=== PATIENT | male | born 1995 | race Caucasian/White ===

== ENCOUNTER 2023-03-11 15:52 | Emergency (ER) | payer BC, SELFPAY ==
[2023-03-11 16:03] VITALS: BP 126/74; PULSE 82; RESP 20; TEMP 36.9; O2SAT 98
--- NOTE | 2023-03-11 16:45 | ED.URI ---
HPI - URI/Sore Throat General Chief Complaint: Upper Respiratory Infection Stated Complaint: cough / tight chest Time Seen by Provider: 03/11/23 16:45 Source: patient, RN notes reviewed and old records reviewed Mode of arrival: ambulatory Limitations: no limitations History of Present Illness HPI Narrative: 27 year old male presents to express care with complaints of developing nasal congestion with drainage and cough since yesterday. patient reports that he noted today some tightness in chest intermittent with cough, denies any shortness of breath or any fevers. He states that he works in a dirty environment which has aggravated his cough. Patient has taken some DayQuil and Tyleol for his symptoms. denies any known ill contacts. MD elicited complaint: cough, rhinorrhea, nasal congestion and other (tightness to chest with cough) Onset (ago): day(s) (since yesterday) Consistency: intermittent Pain scale (0-10): 3 Able to tolerate fluids by mouth: Yes Treatments prior to arrival: acetaminophen and other (DayQuil) Related Data Allergies Allergy/AdvReac Type Severity Reaction Status Date / Time azithromycin Allergy Rash Verified 03/11/23 16:09 etomidate AdvReac Other Verified 03/11/23 16:09 Review of Systems Review of Systems: CONSTITUTIONAL: Denies malaise, chills, sweats, or fever. EYES: Denies visual changes, redness, or discharge. ENT: Reports rhinorrhea, congestion, no sinus pain, no otalgia scratchy sore throat. CARDIOVASCULAR: Denies chest pain, palpitations, or edema. RESPIRATORY: Reports cough.? Denies dyspnea,.reports medial chest tightness with cough GASTROINTESTINAL: Denies abdominal pain, nausea, vomiting, diarrhea SKIN: Denies rash or itching. MUSCULOSKELETAL: Denies myalgia. NEUROLOGIC: Denies headache. All systems reviewed & are unremarkable except as noted in HPI and below PMFSH Surgical History Surgical History (Updated 03/13/23 @ 22:12 by Krystina Peace NP) Hx of thumb surgery left thumb tendon reattached Social History Social History (Updated 03/13/23 @ 22:12 by Krystina Peace NP) Smoking status: Never smoker Alcohol intake: current Alcohol use details: rare social Substance use type: does not use Living arrangements: with family Gender identity (if verbalized by the patient): Male Comments At time of signature, agree with nursing past medical, surgical, social and family history. There is no relevant family history pertinent to the presenting complaint Exam Narrative: GENERAL: Well-appearing, well-nourished, and in no acute distress. HEAD: Normocephalic EYES: PERRLA, conjunctivae clear ENT: Nares clear, turbinates edematous and erythematous, clear discharge. Mucous membranes moist. TM pearly [place] with dull light reflex bilaterally; no tragal tenderness. Oropharynx erythematous without lesions. Tonsils red not enlarged and without exudate, no drooling, no hoarseness, no trismus, uvula midline.post nasal drainage. NECK: Supple. No lymphadenopathy CHEST: Clear to auscultation, breath sounds equal. No wheezing, rhonchi, rales, or stridor. No respiratory distress, speaks in full sentences.dry cough noted SAO2 98% on room air HEART: Regular rate and rhythm. No murmur heard. SKIN: Warm, dry, no rash. NEURO: Alert and oriented x3. PSYCH: Normal mood and affect Course Course Emergency Course: Patient is aware of diagnosis, understands and agrees to treatment plan.? Anticipatory guidance given.? Patient agrees to follow-up as directed and is aware of reasons to seek care at the emergency department. Portions of this record may have been created with voice recognition software Level of Care: Express Care Visit Vital Signs Vital signs: Vital Signs Temperature 36.9 C 03/11/23 16:03 Pulse Rate 82 03/11/23 16:03 Respiratory Rate 20 03/11/23 16:03 Blood Pressure 126/74 03/11/23 16:03 Pulse Oximetry 98 03/11/23 16:03 Oxygen Delivery
== END 2023-03-11 17:14 | disposition home or self-care (01) ==
PROVIDERS: Emergency Provider Registered Nurse
DX: J06.9 Acute upper respiratory infection, unspecified (principal)
CPT/HCPCS: 87081; 87880; 99213; G0463